=== PATIENT | female | born 1935 | race Caucasian/White ===

== ENCOUNTER 2019-08-24 13:21 | Emergency (ER) | payer OTHER ==
[~2019-08-24] VITALS: Ht 162.6 cm; Wt 65.8 kg
[2019-08-24] MEDS ORDERED: ENALAPRIL MALEA20 MG (13:39)
[2019-08-24] MEDS ORDERED: HYDROCHLOROTH12.5 MG (13:39)
--- NOTE | 2019-08-24 14:29 | NUR ---
Pt recieved CT scan.
--- NOTE | 2019-08-24 14:35 | Diagnostic Imaging Report ---
Examination: CT head without contrast Clinical Indication: Loss vision of left eye. Technique: Transaxial noncontrast images from the skull base through the vertex were obtained. Sagittal and coronal reformatted images were done. Dose modulation, iterative reconstruction, and/or weight based adjustment of the mA/kV was utilized to reduce the radiation dose to as low as reasonably achievable. Comparison: None. Findings: Scalp: No abnormalities. Bones: Intact. No fractures. No blastic or lytic lesions. Brain sulci: Mild volume loss for patient's age. Ventricles: No hydrocephalus. Extra-axial space: No abnormalities. Parenchyma: There are patchy areas of low-attenuation within subcortical and periventricular white matter, nonspecific, but could represent microvascular ischemic disease. No masses, hemorrhage, or acute or chronic cortical based vascular insults. Suprasellar region: No abnormalities. Craniocervical junction: The foramen magnum is patent. No Chiari one malformation. Impression: 1. No acute intracranial finding. 2. Mild chronic microvascular ischemic change and volume loss. Signed by: Dr. Addie Smith M.D. on 08/24/2019 2:33 PM
--- NOTE | 2019-08-24 17:10 | NUR ---
Preparing patient for transfer to higher level of care for opthalmology evaluation.
--- NOTE | 2019-08-24 17:22 | NUR ---
Called [facility] patient placement center @ [phone]. Asked to give report to nurse taking report for room 1634, pit hoist operator reported to this RN that she attempted x 3 to call the floor, no answer recieved. Per pit hoist operator she reported if patient transported without report, it is documented that this RN attempted to call report.
--- NOTE | 2019-08-24 17:51 | NUR ---
report given to geoff gonzalez [facility]
[2019-08-24 17:53] VITALS: BP 139/65
[2019-08-24] MEDS ORDERED: DIPHENHYDRAMINE HCL INJ 50 MG/ML VIAL IV ONE (18:15)
--- NOTE | 2019-08-24 18:18 | NUR ---
RN notified by Dr. Galarza pt having allergic reaction to meal provided in ER, patient given 25mg IV benadryl for reaction.
[2019-08-24] MEDS ORDERED: DIPHENHYDRAMINE HCL INJ 50 MG/ML VIAL ONE (18:19)
--- NOTE | 2019-08-24 18:30 | NUR ---
Pt noted to have decreased swelling to mouth and tongue post benadryl admininstration. EMS present and ready to transport patient to facility.
== END 2019-08-24 18:44 | disposition other institution (70) ==
LOC: ER 13:21
DX: H57.12 Ocular pain, left eye (principal); H54.62 Unqualified visual loss, left eye, normal vision right eye
CPT/HCPCS: 70450; 99284; J1200